=== PATIENT | female | born 1985 | race American Indian/Alaskan Native ===

== ENCOUNTER 2017-01-17 22:14 | Emergency (ER) | payer SELFPAY ==
[2017-01-17] MEDS ORDERED: XYLOCAINE 1% MPF 5 mL INFILTRATI ONE (22:58)
[2017-01-17] MEDS ORDERED: BOOSTRIX IM ONE (22:58)
[2017-01-17] MEDS ORDERED: NORCO 5/325 PO ONE (22:58)
[2017-01-17] MEDS ORDERED: NACL 0.9% IR ONE (23:00)
--- NOTE | 2017-01-17 23:00 | Emergency Department Report ---
ED Laceration HPI - HPI Chief Complaint: Wound/Laceration Stated Complaint: FALL/BUSTED MOUTH Time Seen by Provider: 01/17/17 22:51 Occurred When: Today Location: Head (lip, upper) Severity: severe (/10) Tetanus Status: Not up to Date Laceration Symptoms: Yes Pain (mid upper lip and mouth), No Foreign Body Sensation, No Numbness, No Weakness Other History: Patient here with her family reports that she was walking in her room tonight and slipped and hit her she reports that she has a cut on her upper lip and her mouth is painful at 9 at 10. Denies any loose or broken tooth. Tetanus vaccine is up-to-date. Denies any head injury or loss of consciousness. Denies any headache or dizziness. Pain is localized to mouth and upper lip at laceration site. No czmg-egj-ehdcpme medication taken. She reports she placed pressure on the area to reduce bleeding . ED Review of Systems ROS: Stated complaint: FALL/BUSTED MOUTH Other details as noted in HPI Comment: All other systems reviewed and negative Constitutional: no symptoms reported ENT: other (pain to upper lip and mouth from injury). denies: ear pain, throat pain, dental pain, epistaxis, congestion Respiratory: no symptoms reported Cardiovascular: denies: chest pain, palpitations, edema, syncope Gastrointestinal: denies: nausea, vomiting Skin: other (laceration to upper lip). denies: rash Neurological: denies: headache, weakness, numbness, paresthesias, abnormal gait , vertigo ED Past Medical Hx - Past Medical History Previous Medical History?: Yes Hx Asthma: Yes - Surgical History Past Surgical History?: No - Family History Family history: hypertension - Social History Smoking Status: Never Smoker Substance Use Type: None Other Social History: She lives with her family - Medications Home Medications: Home Medications Medication Instructions Recorded Confirmed Last Taken Type ALBUTEROL NEB's [Proventil 0.083%] 2.5 mg IH TID PRN 10/29/14 10/29/14 10/23/14 08:00 History Albuterol Sulfate [Ventolin HFA] 2 puff IH Q4H PRN 10/29/14 10/29/14 10/27/14 09 :00 History Ibuprofen [Motrin] 800 mg PO Q8H #30 tablet 10/29/14 Unknown Rx traMADol [Ultram 50 MG tab] 50 mg PO Q6HR PRN #20 tablet 10/29/14 Unknown Rx HYDROcodone/APAP 10-325 [[place] 1 each PO Q6HR PRN #20 tablet 12/29/14 Unknown Rx 10/325] Promethazine [Phenergan TAB] 25 mg PO Q6HR PRN #12 tab 12/29/14 Unknown Rx Ranitidine HCl [Zantac 150 MG TAB] 150 mg PO Q12H #60 tablet 12/29/14 Unknown Rx Acetaminophen/Codeine [Tylenol #3] 1 tab PO Q6H PRN #15 tab 05/31/15 Unknown Rx Albuterol *Only Ed* [Proventil 2.5 mg IH Q4H PRN #15 nebu 05/31/15 Unknown Rx 0.5% NEBS] Albuterol Sulfate [Ventolin HFA] 2 puff IH Q4H PRN #1 hfa.aer.ad 05/31/15 Unknown Rx Omeprazole [PriLOSEC] 20 mg PO QDAY #30 capsule.dr 05/31/15 Unknown Rx Cephalexin [Keflex] 500 mg PO Q8HR #15 cap 01/18/17 Unknown Rx Ibuprofen [Motrin] 600 mg PO Q8H PRN #15 tablet 01/18/17 Unknown Rx Laceration Physical Exam - Exam General: Vital signs noted. No distress. Alert and acting appropriately. General:This is a 31-year-old obese female that is in no acute distress. Head: Normocephalic atraumatic, no abrasion, contusion, laceration. Lungs: Clear to auscultate bilaterally no rhonchi wheezes or rales. Cardiovascular: S1, S2. Regular rate and rhythm and no murmur Mouth: Positive gum tenderness to upper incisor area, teeth are stable. Tongue is normal. No laceration noted. Uvula is midline and oral airways patent and mouth is moist. Patient able to open and close mouth without any difficulties Skin: Patient with 0.25 cm laceration to upper lip close to vermilion border right side with superficial skin scratch and left side with irregular laceration. Scant amount of bleeding noted. Wound is clean. No foreign body noted. Psych: Normal mood and behavior Extremity: No clubbing, cyanosis or edema. +2 pulses in all extremities. No neurovascular compromise Wound Length (cm): 0 (0.25 cm irregular laceration) Laceration Location: Other (mid upper lip close to vermilion border) Laceration Exam: Yes Normal Distal CMS, No Foreign Body, No Exposed Tendon, Vessel, or Nerve, No Tendon Injury ED Course Vital Signs 01/17/17 22:23 Temperature 98.8 F Pulse Rate 73 Respiratory 18 Rate Blood Pressure 125/88 O2 Sat by Pulse 99 Oximetry - Reevaluation(s) Reevaluation #1: 01/18/17 01:16 Patient given [place] 5/325 2 tablets for mouth pain and she was given Boostrix 0.5 mouth IM to update tetanus. - Laceration /Wound Repair Left Upper Medial Wound Location: mouth (upper lip) Wound Length (cm): 0 (0.25 cm) Wound's Depth, Shape: superficial, irregular Wound Explored: clean Irrigated w/ Saline (ccs): 250 Betadine Prep?: Yes Anesthesia: 1% Lidocaine Volume Anesthetic (ccs): 0 (0.5 mL) Wound Debrided: moderate Wound Repaired With: sutures Suture Size/Type: 6:0 (Vicryl) Number of Sutures: 2 Layer Closure?: No Sterile Dressing Applied?: Yes Progress: Laceration repair under sterile procedure with 6-0 Vicryl. 2 sutures placed. Patient tolerated procedure well and tetanus vaccine is updated. ED Medical Decision Making - Medical Decision Making ED course: Patient here reports that she accidentally slipped and hit her upper lip on her refrigerator in her room tonight. She reports mild pain without any injury to teeth and laceration to her upper lip. Physical findings for superficial laceration which is irregular close to vermilion border left side deeper than right side. See procedure note for laceration repair. Patient was given [place] 5/325 2 tablets for pain and booster 0.[address] Rene saw and evaluated patient. Vital signs are stable and she is afebrile. Pain is controlled. Assessment/plan 1. Laceration upper lip, superficial 2. Accidental ground-level fall 3. Mild pain due to trauma Patient discharged home with family with prescription for Keflex. I discussed with her that she does not have to have sutures removed as sutures are absorbable. I discussed the patient is to keep affected area clean and dry and to follow-up with her primary care physician in 4 days. He should discharged home with family prescription for Motrin and Keflex. Critical care attestation.: If time is entered above; I have spent that time in minutes in the direct care of this critically ill patient, excluding procedure time. ED Disposition Clinical Impression: Painful mouth Laceration of lip without complication Qualifiers: Encounter type: initial encounter Qualified Code(s): S01.511A - Laceration without foreign body of lip, initial encounter Accidental fall Qualifiers: Encounter type: initial encounter Qualified Code(s): W19.XXXA - Unspecified fall, initial encounter Disposition: TO HOME OR SELFCARE Is pt being admited?: No Does the pt Need Aspirin: No Condition: Stable Instructions: Laceration (ED), Absorbable Suture Care (ED) Additional Instructions: Please follow up with primary care physician in 4 days Please take antibiotic as prescribed Keep affected area clean and dry See discharge instruction on absorbable sutures Prescriptions: Cephalexin [Keflex] 500 mg PO Q8HR #15 cap Ibuprofen [Motrin] 600 mg PO Q8H PRN #15 tablet PRN Reason: Pain Referrals: PRIMARY CARE, [Primary Care Provider] - 01/21/17 Forms: Accompanied Note, Work/School Release Form(ED)
[2017-01-18 01:28] VITALS: BP 117/80
== END 2017-01-18 01:27 | disposition home or self-care (01) ==
LOC: ED 22:14
DX: S01.511A Laceration without foreign body of lip, initial encounter (principal); J45.909 Unspecified asthma, uncomplicated; W01.198A Fall on same level from slipping, tripping and stumbling with subsequent striking against other object, initial encounter; Y93.89 Activity, other specified; Y92.89 Other specified places as the place of occurrence of the external cause; Y99.8 Other external cause status
CPT/HCPCS: 90471; 90715; 99282

== ENCOUNTER 2017-02-12 12:41 | Emergency (ER) | payer SELFPAY ==
--- NOTE | 2017-02-12 13:04 | Emergency Department Report ---
Chief Complaint: Adult Asthma Stated Complaint: ASTHMA/SOB Time Seen by Provider: 02/12/17 13:01 - HPI History of Present Illness: PT c/o asthma exacerbation since this morning PT states she has been using her albuterol, but no relief - ROS Review of Systems: + cough + wheezing no recent uri + headache - Exam Physical Exam: - wheezing at this time MSE screening note: Focused history and physical exam performed. Due to findings the following was ordered: labs ED Disposition for MSE Condition: Stable
[2017-02-12 13:06] VITALS: BP 113/83
[2017-02-12 13:58] LABS: Bilirubin,Urine NEG (Negative); Blood,Urine NEG (Negative); Ketones,Urine NEG (Negative); Leukocyte Esterase,Urine TR (Negative); Nitrite,Urine NEG (Negative); Protein,Urine <15 mg/dL mg/dL (Negative); Urobilinogen,Urine < 2.0 mg/dL (<2.0)
[2017-02-12] MEDS: DUONEB *Not for PRN Use IH ONE ×2 (14:18→15:37)
[2017-02-12] MEDS: TYLENOL PO ONE (14:20)
[2017-02-12] MEDS: DELTASONE PO ONE (14:20)
--- NOTE | 2017-02-12 15:23 | XRay Report ---
Chest 2 views. History: Worsening cough. Findings: Dextrocardia is noted. Heart and pulmonary vessels are otherwise normal. The lungs are clear. There is no pleural fluid. Impression: Dextrocardia with situs inversus. No acute findings.
--- NOTE | 2017-02-12 16:14 | Emergency Department Report ---
ED Asthma HPI - General Chief Complaint: Adult Asthma Stated Complaint: ASTHMA/SOB Time Seen by Provider: 02/12/17 13:01 Source: patient Mode of arrival: Ambulatory Limitations: No Limitations - History of Present Illness Initial Comments: 31-year-old female past medical history asthma presents with complaint of shortness of breath since last night and wheezing since last night. Patient denies chest pain or significant shortness of breath. Patient states she was using her albuterol inhaler with minimal. Patient speaking in full sentences. States she has minor headache. Denies any fevers chills or productive cough. Dry cough reported by patient. MD Complaint: "asthma attack" -: Last night Asthma History: childhood onset Severity: moderate Associated Symptoms: dry cough Treatments Prior to Arrival: inhaled bronchodilator - Related Data Current Asthma Therapy: inhaled bronchodilator Home Medications Medication Instructions Recorded Confirmed Last Taken ALBUTEROL NEB's [Proventil 0.083%] 2.5 mg IH TID PRN 10/29/14 10/29/14 10/23/14 08:00 Albuterol Sulfate [Ventolin HFA] 2 puff IH Q4H PRN 10/29/14 10/29/14 10/27/14 09 :00 Previous Rx's Medication Instructions Recorded Last Taken Type Ibuprofen [Motrin] 800 mg PO Q8H #30 tablet 10/29/14 Unknown Rx traMADol [Ultram 50 MG tab] 50 mg PO Q6HR PRN #20 tablet 10/29/14 Unknown Rx HYDROcodone/APAP 10-325 [[place] 1 each PO Q6HR PRN #20 tablet 12/29/14 Unknown Rx 10/325] Promethazine [Phenergan TAB] 25 mg PO Q6HR PRN #12 tab 12/29/14 Unknown Rx Ranitidine HCl [Zantac 150 MG TAB] 150 mg PO Q12H #60 tablet 12/29/14 Unknown Rx Acetaminophen/Codeine [Tylenol #3] 1 tab PO Q6H PRN #15 tab 05/31/15 Unknown Rx Albuterol *Only Ed* [Proventil 2.5 mg IH Q4H PRN #15 nebu 05/31/15 Unknown Rx 0.5% NEBS] Albuterol Sulfate [Ventolin HFA] 2 puff IH Q4H PRN #1 hfa.aer.ad 05/31/15 Unknown Rx Omeprazole [PriLOSEC] 20 mg PO QDAY #30 capsule. 05/31/15 Unknown Rx Cephalexin [Keflex] 500 mg PO Q8HR #15 cap 01/18/17 Unknown Rx Ibuprofen [Motrin] 600 mg PO Q8H PRN #15 tablet 01/18/17 Unknown Rx ALBUTEROL Inhaler [ProAir HFA 1 puff IH Q4H PRN #1 inha 02/12/17 Unknown Rx Inhaler] Naproxen [Naprosyn TAB] 375 mg PO BID PRN #25 tablet 02/12/17 Unknown Rx Phenylephrine/Dm/Acetaminop/GG 10 ml PO Q4H PRN #1 bottle 02/12/17 Unknown Rx [Mucinex Rfxx-Xun-Oszyrorbnk Lq] Prednisone [predniSONE 10 mg 10 mg PO .TAPER #1 tab.ds.pk 02/12/17 Unknown Rx (6-Day Pack, 21 Tabs)] Allergies Allergy/AdvReac Type Severity Reaction Status Date / Time No Known Allergies Allergy Verified 05/31/15 11:29 ED Review of Systems ROS: Stated complaint: ASTHMA/SOB Other details as noted in HPI Constitutional: denies: chills, fever Eyes: denies: eye pain, eye discharge, vision change ENT: denies: ear pain, throat pain Respiratory: shortness of breath. denies: cough, wheezing Cardiovascular: denies: chest pain, palpitations Endocrine: no symptoms reported Gastrointestinal: denies: abdominal pain, nausea, diarrhea Genitourinary: denies: urgency, dysuria, discharge Musculoskeletal: denies: back pain, joint swelling, arthralgia Skin: denies: rash, lesions Neurological: denies: headache, weakness, paresthesias Psychiatric: denies: anxiety, depression Hematological/Lymphatic: denies: easy bleeding, easy bruising ED Past Medical Hx - Past Medical History Previous Medical History?: Yes Hx Asthma: Yes - Surgical History Past Surgical History?: No - Social History Smoking Status: Former Smoker Substance Use Type: Alcohol, Prescribed - Medications Home Medications: Home Medications Medication Instructions Recorded Confirmed Last Taken Type ALBUTEROL NEB's [Proventil 0.083%] 2.5 mg IH TID PRN 10/29/14 10/29/14 10/23/14 08:00 History Albuterol Sulfate [Ventolin HFA] 2 puff IH Q4H PRN 10/29/14 10/29/14 10/27/14 09 :00 History Ibuprofen [Motrin] 800 mg PO Q8H #30 tablet 10/29/14 Unknown Rx traMADol [Ultram 50 MG tab] 50 mg PO Q6HR PRN #20 tablet 10/29/14 Unknown Rx HYDROcodone/APAP 10-325 [[place] 1 each PO Q6HR PRN #20 tablet 12/29/14 Unknown Rx 10/325] Promethazine [Phenergan TAB] 25 mg PO Q6HR PRN #12 tab 12/29/14 Unknown Rx Ranitidine HCl [Zantac 150 MG TAB] 150 mg PO Q12H #60 tablet 12/29/14 Unknown Rx Acetaminophen/Codeine [Tylenol #3] 1 tab PO Q6H PRN #15 tab 05/31/15 Unknown Rx Albuterol *Only Ed* [Proventil 2.5 mg IH Q4H PRN #15 nebu 05/31/15 Unknown Rx 0.5% NEBS] Albuterol Sulfate [Ventolin HFA] 2 puff IH Q4H PRN #1 hfa.aer.ad 05/31/15 Unknown Rx Omeprazole [PriLOSEC] 20 mg PO QDAY #30 capsule.dr 05/31/15 Unknown Rx Cephalexin [Keflex] 500 mg PO Q8HR #15 cap 01/18/17 Unknown Rx Ibuprofen [Motrin] 600 mg PO Q8H PRN #15 tablet 01/18/17 Unknown Rx ALBUTEROL Inhaler [ProAir HFA 1 puff IH Q4H PRN #1 inha 02/12/17 Unknown Rx Inhaler] Naproxen [Naprosyn TAB] 375 mg PO BID PRN #25 tablet 02/12/17 Unknown Rx Phenylephrine/Dm/Acetaminop/GG 10 ml PO Q4H PRN #1 bottle 02/12/17 Unknown Rx [Mucinex Jquc-Nui-Poevmyqmqv Lq] Prednisone [predniSONE 10 mg 10 mg PO .TAPER #1 tab.ds.pk 02/12/17 Unknown Rx (6-Day Pack, 21 Tabs)] ED Physical Exam - General Limitations: No Limitations General appearance: alert, in no apparent distress - Head Head exam: Present: atraumatic, normocephalic - Eye Eye exam: Present: normal appearance, PERRL, EOMI - ENT ENT exam: Present: mucous membranes moist - Neck Neck exam: Present: normal inspection - Respiratory Respiratory exam: Present: wheezes (left lwoer lung field wheezing). Absent: respiratory distress - Cardiovascular Cardiovascular Exam: Present: regular rate, normal rhythm. Absent: systolic murmur, diastolic murmur, rubs, gallop - GI/Abdominal GI/Abdominal exam: Present: soft, normal bowel sounds - Extremities Exam Extremities exam: Present: normal inspection - Back Exam Back exam: Present: normal inspection - Neurological Exam Neurological exam: Present: alert, oriented X3 - Psychiatric Psychiatric exam: Present: normal affect, normal mood - Skin Skin exam: Present: warm, dry, intact, normal color. Absent: rash ED Course Vital Signs 02/12/17 02/12/17 02/12/17 13:03 14:20 14:29 Temperature 98.3 F Pulse Rate 75 Pulse Rate [ 80 75 Bilateral Upper Lobe] Respiratory 18 Rate Respiratory 18 18 Rate [Bilateral Upper Lobe] Blood Pressure 113/83 O2 Sat by Pulse 100 Oximetry 02/12/17 02/12/17 15:39 15:55 Temperature Pulse Rate Pulse Rate [ 80 82 Bilateral Upper Lobe] Respiratory Rate Respiratory 18 18 Rate [Bilateral Upper Lobe] Blood Pressure O2 Sat by Pulse Oximetry ED Medical Decision Making - Medical Decision Making A/P: Asthma exacerbation 1-refill on albuterol inhaler, prednisone pack, Mucinex 2-approximately when necessary 3-signs stable for discharge 4- x-ray shows sinus inversus but no signs of pneumonia at this time Critical care attestation.: If time is entered above; I have spent that time in minutes in the direct care of this critically ill patient, excluding procedure time. ED Disposition Clinical Impression: Asthma Qualifiers: Asthma severity: moderate persistent Asthma complication type: with acute exacerbation Qualified Code(s): J45.41 - Moderate persistent asthma with (acute ) exacerbation Disposition: TO HOME OR SELFCARE Is pt being admited?: No Does the pt Need Aspirin: No Condition: Stable Instructions: Asthma (ED), Reactive Airways Disease (ED) Prescriptions: ALBUTEROL Inhaler [ProAir HFA Inhaler] 1 puff IH Q4H PRN #1 inha PRN Reason: Wheezing Naproxen [Naprosyn TAB] 375 mg PO BID PRN #25 tablet PRN Reason: Cough Phenylephrine/Dm/Acetaminop/GG [Mucinex Qpvr-Bbo-Qvmzxxtecb Lq] 10 ml PO Q4H PRN #1 bottle PRN Reason: Cough Prednisone [predniSONE 10 mg (6-Day Pack, 21 Tabs)] 10 mg PO .TAPER #1 tab.ds.pk Referrals: [facility] [Outside] - 3-5 Days [facility] [Outside] - 3-5 Days Forms: Work/School Release Form(ED) Time of Disposition: 16:12
== END 2017-02-12 16:24 | disposition home or self-care (01) ==
LOC: ED 12:41
DX: J45.41 Moderate persistent asthma with (acute) exacerbation (principal); Z87.891 Personal history of nicotine dependence
CPT/HCPCS: 71020; 81001; 81025; 94640; 99284; J7512

== ENCOUNTER 2017-04-01 05:52 | Emergency (ER) | payer SELFPAY ==
[2017-04-01 06:06] VITALS: BP 116/78
--- NOTE | 2017-04-01 06:36 | XRay Report ---
FINAL REPORT EXAM: XR KNEE 1-2V LT HISTORY: knee pain COMPARISONS: None. FINDINGS: AP and lateral views of the left knee Mild patella [place]. No fracture, other malalignment or joint effusion identified. Joint spaces are preserved and subchondral surfaces are smooth. IMPRESSION: No acute finding. Mild patella [place], which can predispose the patient to patellofemoral maltracking. Correlation with symptoms is requested.
[2017-04-01] MEDS ORDERED: MOTRIN PO ONE (07:33)
--- NOTE | 2017-04-01 07:39 | Emergency Department Report ---
ED Lower Extremity HPI - General Chief Complaint: Extremity Injury, Lower Stated Complaint: LEFT LEG PAIN Time Seen by Provider: 04/01/17 07:24 Source: patient Mode of arrival: Ambulatory Limitations: No Limitations - History of Present Illness Initial Comments: This is a 31-year-old female nontoxic, well nourished in appearance, no acute signs of distress presents to the ED complaining of left knee pain status post fall that occurred yesterday around 5 PM. Patient stated she tripped and fell and landed on the left knee. Patient denies any numbness, tingling, fever, chills, nausea, vomiting, chest pain or shortness of breath. Denies any joint swelling or joint redness. Denies any other trauma or head trauma. Denies any allergies. Medical history includes asthma. Discussed pain as aching level of 8 out of 10. Patient has limited range of motion due to pain but is able to put minimal weight to the left knee. MD Complaint: knee injury -: days(s) (1) Injury: Knee: Left Type of Injury: blunt Place: street/outdoors Severity: mild Severity scale (0 -10): 8 Improves With: nothing Worsens With: nothing Context: fall Associated Symptoms: able to partially bear weight, ambulatory. denies: snap/ pop sensation, swelling, numbness, tingling, unable to bear weight - Related Data Home Medications Medication Instructions Recorded Confirmed Last Taken ALBUTEROL NEB's [Proventil 0.083%] 2.5 mg IH TID PRN 10/29/14 10/29/14 10/23/14 08:00 Albuterol Sulfate [Ventolin HFA] 2 puff IH Q4H PRN 10/29/14 10/29/14 10/27/14 09 :00 Previous Rx's Medication Instructions Recorded Last Taken Type Ibuprofen [Motrin] 800 mg PO Q8H #30 tablet 10/29/14 Unknown Rx traMADol [Ultram 50 MG tab] 50 mg PO Q6HR PRN #20 tablet 10/29/14 Unknown Rx HYDROcodone/APAP 10-325 [[place] 1 each PO Q6HR PRN #20 tablet 12/29/14 Unknown Rx 10/325] Promethazine [Phenergan TAB] 25 mg PO Q6HR PRN #12 tab 12/29/14 Unknown Rx Ranitidine HCl [Zantac 150 MG TAB] 150 mg PO Q12H #60 tablet 12/29/14 Unknown Rx Acetaminophen/Codeine [Tylenol #3] 1 tab PO Q6H PRN #15 tab 05/31/15 Unknown Rx Albuterol *Only Ed* [Proventil 2.5 mg IH Q4H PRN #15 nebu 05/31/15 Unknown Rx 0.5% NEBS] Albuterol Sulfate [Ventolin HFA] 2 puff IH Q4H PRN #1 hfa.aer.ad 05/31/15 Unknown Rx Omeprazole [PriLOSEC] 20 mg PO QDAY #30 capsule.dr 05/31/15 Unknown Rx Cephalexin [Keflex] 500 mg PO Q8HR #15 cap 01/18/17 Unknown Rx Ibuprofen [Motrin] 600 mg PO Q8H PRN #15 tablet 01/18/17 Unknown Rx ALBUTEROL Inhaler [ProAir HFA 1 puff IH Q4H PRN #1 inha 02/12/17 Unknown Rx Inhaler] Naproxen [Naprosyn TAB] 375 mg PO BID PRN #25 tablet 02/12/17 Unknown Rx Phenylephrine/Dm/Acetaminop/GG 10 ml PO Q4H PRN #1 bottle 02/12/17 Unknown Rx [Mucinex Euto-Ezu-Umbpnpcdop Lq] Prednisone [predniSONE 10 mg 10 mg PO .TAPER #1 tab.ds.pk 02/12/17 Unknown Rx (6-Day Pack, 21 Tabs)] Ibuprofen [Motrin 600 MG tab] 600 mg PO Q8H PRN #30 tablet 04/01/17 Unknown Rx Allergies Allergy/AdvReac Type Severity Reaction Status Date / Time No Known Allergies Allergy Verified 05/31/15 11:29 ED Review of Systems ROS: Stated complaint: LEFT LEG PAIN Other details as noted in HPI Constitutional: denies: chills, fever Eyes: denies: eye pain, eye discharge, vision change ENT: denies: ear pain, throat pain Respiratory: denies: cough, shortness of breath, wheezing Cardiovascular: denies: chest pain, palpitations Endocrine: no symptoms reported Gastrointestinal: denies: abdominal pain, nausea, diarrhea Genitourinary: denies: urgency, dysuria, discharge Musculoskeletal: denies: back pain, joint swelling, arthralgia Skin: denies: rash, lesions Neurological: denies: headache, weakness, paresthesias Psychiatric: denies: anxiety, depression Hematological/Lymphatic: denies: easy bleeding, easy bruising ED Past Medical Hx - Past Medical History Previous Medical History?: Yes Hx Asthma: Yes - Surgical History Past Surgical History?: No - Social History Smoking Status: Never Smoker Substance Use Type: Alcohol - Medications Home Medications: Home Medications Medication Instructions Recorded Confirmed Last Taken Type ALBUTEROL NEB's [Proventil 0.083%] 2.5 mg IH TID PRN 10/29/14 10/29/14 10/23/14 08:00 History Albuterol Sulfate [Ventolin HFA] 2 puff IH Q4H PRN 10/29/14 10/29/14 10/27/14 09 :00 History Ibuprofen [Motrin] 800 mg PO Q8H #30 tablet 10/29/14 Unknown Rx traMADol [Ultram 50 MG tab] 50 mg PO Q6HR PRN #20 tablet 10/29/14 Unknown Rx HYDROcodone/APAP 10-325 [[place] 1 each PO Q6HR PRN #20 tablet 12/29/14 Unknown Rx 10/325] Promethazine [Phenergan TAB] 25 mg PO Q6HR PRN #12 tab 12/29/14 Unknown Rx Ranitidine HCl [Zantac 150 MG TAB] 150 mg PO Q12H #60 tablet 12/29/14 Unknown Rx Acetaminophen/Codeine [Tylenol #3] 1 tab PO Q6H PRN #15 tab 05/31/15 Unknown Rx Albuterol *Only Ed* [Proventil 2.5 mg IH Q4H PRN #15 nebu 05/31/15 Unknown Rx 0.5% NEBS] Albuterol Sulfate [Ventolin HFA] 2 puff IH Q4H PRN #1 hfa.aer.ad 05/31/15 Unknown Rx Omeprazole [PriLOSEC] 20 mg PO QDAY #30 capsule. 05/31/15 Unknown Rx Cephalexin [Keflex] 500 mg PO Q8HR #15 cap 01/18/17 Unknown Rx Ibuprofen [Motrin] 600 mg PO Q8H PRN #15 tablet 01/18/17 Unknown Rx ALBUTEROL Inhaler [ProAir HFA 1 puff IH Q4H PRN #1 inha 02/12/17 Unknown Rx Inhaler] Naproxen [Naprosyn TAB] 375 mg PO BID PRN #25 tablet 02/12/17 Unknown Rx Phenylephrine/Dm/Acetaminop/GG 10 ml PO Q4H PRN #1 bottle 02/12/17 Unknown Rx [Mucinex Msex-Lhv-Dlmfypbfwv Lq] Prednisone [predniSONE 10 mg 10 mg PO .TAPER #1 tab.ds.pk 02/12/17 Unknown Rx (6-Day Pack, 21 Tabs)] Ibuprofen [Motrin 600 MG tab] 600 mg PO Q8H PRN #30 tablet 04/01/17 Unknown Rx ED Physical Exam - General Limitations: No Limitations General appearance: alert, in no apparent distress - Head Head exam: Present: atraumatic, normocephalic, normal inspection - Eye Eye exam: Present: normal appearance, PERRL, EOMI. Absent: scleral icterus, conjunctival injection, nystagmus, periorbital swelling, periorbital tenderness Pupils: Present: normal accommodation - ENT ENT exam: Present: normal exam, normal orophraynx, mucous membranes moist, TM's normal bilaterally, normal external ear exam - Neck Neck exam: Present: normal inspection, full ROM. Absent: tenderness, meningismus, lymphadenopathy, thyromegaly - Respiratory Respiratory exam: Present: normal lung sounds bilaterally. Absent: respiratory distress, wheezes, rales, rhonchi, stridor, chest wall tenderness, accessory muscle use, decreased breath sounds, prolonged expiratory - Cardiovascular Cardiovascular Exam: Present: regular rate, normal rhythm, normal heart sounds. Absent: bradycardia, tachycardia, irregular rhythm, systolic murmur, diastolic murmur, rubs, gallop - GI/Abdominal GI/Abdominal exam: Present: soft, normal bowel sounds. Absent: distended, tenderness, guarding, rigid, diminished bowel sounds - Extremities Exam Extremities exam: Present: normal inspection, full ROM, tenderness, normal capillary refill. Absent: pedal edema, joint swelling, calf tenderness - Expanded Lower Extremity Exam Left Hip exam: Present: normal inspection, full ROM Upper Leg exam: Present: normal inspection, full ROM Knee exam: Present: normal inspection, full ROM, tenderness, full knee extension. Absent: swelling, abrasion, laceration, ecchymosis, deformity, crepidus, dislocation, erythema, effusion, pain w/ pronation/supination, posterior draw sign, pain/laxity with valgus, pain/laxity with varus Lower Leg exam: Present: normal inspection, full ROM Ankle exam: Present: normal inspection, full ROM Foot/Toe exam: Present: normal inspection, full ROM Neuro vascular tendon exam: Present: no vascular compromise. Absent: pulse deficit, abnormal cap refill, motor deficit, sensory deficit, tendon deficit, extremity cold to touch, pallor, abnormal 2-point discrimination, decreased fine /light touch, foot drop, peroneal nerve deficit, significant pain with passive ROM of distal joint Gait: Positive: observed and limited by pain - Back Exam Back exam: Present: normal inspection, full ROM. Absent: tenderness, CVA tenderness (R), CVA tenderness (L), muscle spasm, paraspinal tenderness, vertebral tenderness, rash noted - Neurological Exam Neurological exam: Present: alert, oriented X3, CN II-XII intact, normal gait, reflexes normal - Psychiatric Psychiatric exam: Present: normal affect, normal mood - Skin Skin exam: Present: warm, dry, intact, normal color. Absent: rash ED Course Vital Signs 04/01/17 06:03 Temperature 97.8 F Pulse Rate 82 Respiratory 17 Rate Blood Pressure 116/78 O2 Sat by Pulse 99 Oximetry - Reevaluation(s) Reevaluation #1: 04/01/17 07:37 Patient is speaking in full sentences with no signs of distress noted. ED Lower Extremity MDM - Medical Decision Making 31-year-old female that presents with left knee pain. X-ray has been obtained and reviewed by radiologist with impression of no acute findings and mild patella dino. Patient was notified of x-ray results with no further question about patient. Patient is stable and was examined by me. Patient received a knee immobilizer with crutches. Patient was also instructed to Rice therapy. Patient received ibuprofen 800 mg by mouth in the ED with patient that his symptoms are improving and are subsiding. Patient was instructed to follow-up with a orthopedic doctor in 3-5 days or if symptoms worsen and continue return to emergency room as soon as possible possible. Patient is hemodynamically stable with stable vital signs. Patient states he is feeling better. At time time of discharge, the patient does not seem toxic or ill in appearance. No acute signs of distress noted. Patient agrees to discharge treatment plan of care. No further questions noted by the patient. Patient also received crutches and was educated but RN had a use crutches. Critical care attestation.: If time is entered above; I have spent that time in minutes in the direct care of this critically ill patient, excluding procedure time. ED Disposition Clinical Impression: Left knee pain Qualifiers: Chronicity: acute Qualified Code(s): M25.562 - Pain in left knee Disposition: TO HOME OR SELFCARE Is pt being admited?: No Does the pt Need Aspirin: No Condition: Stable Instructions: Knee Pain (ED), Knee Immobilizer (ED), Crutch Instructions (ED), Ibuprofen (By mouth) Additional Instructions: Follow-up with Dr. Jovel or another orthopedic doctor in 3-5 days or if symptoms worsen and continue return to emergency room as soon as possible possible. Rest, elevate, ice extremity. Prescriptions: Ibuprofen [Motrin 600 MG tab] 600 mg PO Q8H PRN #30 tablet PRN Reason: Pain Referrals: PRIMARY CARE, [Primary Care Provider] - 3-5 Days LEOBARDO JOVEL MD [Staff Physician] - 3-5 Days SYED SOLOMON MD [Staff Physician] - 3-5 Days [facility] [Outside] - 3-5 Days [facility] [Outside] - 3-5 Days Forms: Work/School Release Form(ED)
== END 2017-04-01 08:23 | disposition home or self-care (01) ==
LOC: ED 05:52
DX: M25.562 Pain in left knee (principal); J45.909 Unspecified asthma, uncomplicated

== ENCOUNTER 2017-11-24 04:43 | Emergency (ER) | payer MEDICAID ==
[2017-11-24] MEDS ORDERED: MOTRIN ONE (05:54)
[2017-11-24 06:06] VITALS: BP 134/81
[2017-11-24] MEDS ORDERED: MOTRIN PO ONE (06:06)
[2017-11-24] MEDS ORDERED: MORPHINE ONE (06:24)
[2017-11-24] MEDS ORDERED: MORPHINE IM ONE (06:33)
--- NOTE | 2017-11-24 07:06 | Emergency Department Report ---
Chief Complaint: Shoulder Injury Stated Complaint: LT SHOULDER PAIN - HPI History of Present Illness: A 11-year-old -Wel[place] female comes in complaining of left shoulder pain since Saturday. Patient denies any injury. She was seen at [facility] and treated with Tylenol 3 and Flexeril which reports are not working. Patient reports that she had a x-ray and CT. - Exam Vital Signs: Vital Signs 11/24/17 11/24/17 06:00 06:34 Temperature 98.6 F Pulse Rate 83 Respiratory 16 18 Rate Blood Pressure 134/81 O2 Sat by Pulse 100 Oximetry Physical Exam: Patient's alert and oriented and appears in a lot of pain. Patient has tenderness to the left shoulder and left upper shoulder blade. MSE screening note: Focused history and physical exam performed. Due to findings the following was ordered: Patient's been evaluated by this provider. Based on history and physical I have ordered CBC CMP and lipase as well as an x-ray of her shoulder. Patient was given morphine 4 mg IM. Differential diagnoses left shoulder pain sprain, gallbladder. ED Disposition for [facility] [place] Condition: Stable Referrals: PRIMARY CARE, [Primary Care Provider] - 3-5 Days
[2017-11-24 07:16] LABS: HCG Qualitative,Urine Negative (Negative)
[2017-11-24 07:26] LABS: Bacteria,Urine 3+ /HPF (Negative); Bilirubin,Urine NEG (Negative); Blood,Urine NEG (Negative); Color,Urine Yellow (Yellow); Hyaline Casts,Urine 1 /LPF; Mucus,Urine FEW /HPF; Protein,Urine <15 mg/dL mg/dL (Negative); Urobilinogen,Urine < 2.0 mg/dL (<2.0)
--- NOTE | 2017-11-24 07:41 | XRay Report ---
FINAL REPORT PROCEDURE: XR SHOULDER 2+V LT TECHNIQUE: LEFT shoulder radiographs including AP views in internal and external rotation. CPT 79911 HISTORY: Left shoulder pain COMPARISON: No prior studies are available for comparison. FINDINGS: Fracture (s) and/or Dislocation(s): None . Joint space(s): Normal . Soft tissues: Normal . Bone mineralization: Normal . Foreign bodies: None . IMPRESSION: Normal Examination
[2017-11-24 08:10] LABS: Basophils # (Auto) 0.1 K/mm3 (0.0-0.1); Basophils % (Auto) 0.9 % (0.0-1.8); Eosinophils % (Auto) 0.7 % (0.0-4.3); Hematocrit 40.3 % (30.3-42.9); Hemoglobin 12.6 gm/dl (10.1-14.3); Lymphocytes # (Auto) 1.8 K/mm3 (1.2-5.4); Lymphocytes % (Auto) 29.3 % (13.4-35.0); Mean Corpuscular HGB Conc 31 % (30-34); Mean Corpuscular Volume 83 fl (79-97); Monocytes # (Auto) 0.6 K/mm3 (0.0-0.8); Monocytes % (Auto) 10.3 % (0.0-7.3); Platelet Count 303 K/mm3 (140-440); Red Blood Count 4.87 M/mm3 (3.65-5.03); Red Cell Distribution Width 14.5 % (13.2-15.2)
[2017-11-24 08:23] LABS: Alanine Aminotransferase 11 units/L (7-56); BUN/Creatinine Ratio 24; Blood Urea Nitrogen 12 mg/dL (7-17); Calcium 8.9 mg/dL (8.4-10.2); Hemolysis Index 37; Lipase 13 units/L (13-60)
[2017-11-24 08:31] LABS: Mean Corpuscular Hemoglobin 26 pg (28-32)
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
== END 2017-11-24 10:10 | disposition home or self-care (01) ==
LOC: ED 04:43
DX: M75.42 Impingement syndrome of left shoulder (principal); J44.9 Chronic obstructive pulmonary disease, unspecified; R10.9 Unspecified abdominal pain
CPT/HCPCS: 36415; 73030; 80053; 81001; 81025; 83690; 85025; 87086; 96372; 99284; J2270

== ENCOUNTER 2019-02-25 08:01 | Emergency (ER) | payer SELFPAY ==
[2019-02-25] MEDS ORDERED: PROVENTIL IH ONE (08:15)
--- NOTE | 2019-02-25 08:15 | Emergency Department Report ---
HPI - General Chief Complaint: Sore Throat Time Seen by Provider: 02/25/19 08:10 - HPI HPI: Is a 33-year-old who comes via EMS to the emergency room with near syncope this AM associated with wheezing while at work. She called 911 for asthma attack. Her blood sugar per EMS was 105 patient states she was working last night when the symptoms started. On exam patient appears anxious. She is hyperventilating. She states that she has a history of asthma but is not taking any medications currently. She also has a history of panic disorder. Patient denies alcohol or drugs or cigarette use. Patient has taken nothing to feel better. Last menstrual cycle was 02/25/2019. She denies fevers, chest pain, sob, chills,dysuria, vaginal discharge, abdominal pain, nausea or diarrhea. ED Past Medical Hx - Past Medical History Previous Medical History?: Yes Hx Psychiatric Treatment: Yes (Panic Attack) Hx Asthma: Yes Hx COPD: Yes - Surgical History Past Surgical History?: No - Family History Family history: no significant - Social History Smoking Status: Never Smoker Substance Use Type: None - Medications Home Medications: Home Medications Medication Instructions Recorded Confirmed Last Taken Type ALBUTEROL NEB's [Proventil 0.083%] 2.5 mg IH TID PRN 10/29/14 10/29/14 10/23/14 08:00 History Albuterol Sulfate [Ventolin HFA] 2 puff IH Q4H PRN 10/29/14 10/29/14 10/27/14 09:00 History Albuterol Sulfate [Proair 90 mcg IH QID PRN #1 [email or web address] 02/25/19 Unknown Rx Respiclick] Cetirizine HCl [ZyrTEC] 10 mg PO DAILY #30 capsule 02/25/19 Unknown Rx Fluticasone [Flonase] 1 spray NS QDAY #1 bottle 02/25/19 Unknown Rx Potassium Chloride 20 meq PO BID #2 dose 02/25/19 Unknown Rx hydrOXYzine PAMOATE [Vistaril] 25 mg PO Q8H PRN #10 capsule 02/25/19 Unknown Rx methylPREDNISolone [Medrol 4MG 4 mg PO FS #1 tab.ds.pk 02/25/19 Unknown Rx DOSEPAK (21 tabs)] ED Review of Systems ROS: Stated complaint: SORE THROAT/WEAKNESS Other details as noted in HPI Comment: All other systems reviewed and negative Physical Exam - Physical Exam Vital Signs: Vital Signs 02/25/19 08:02 Temperature 98.9 F Pulse Rate 72 Respiratory 18 Rate Blood Pressure 110/73 O2 Sat by Pulse 97 Oximetry Physical Exam: s1s2 lungs with b wheezing, oli upper lobes bilateral abd snt no edema no jvd no cva tenderness alert oriented no focal deficit anxious ED Course Vital Signs 02/25/19 08:02 Temperature 98.9 F Pulse Rate 72 Respiratory 18 Rate Blood Pressure 110/73 O2 Sat by Pulse 97 Oximetry - Reevaluation(s) Reevaluation #1: 02/25/19 10:26 MUCH IMPROVED TALKING ON PHONE NO COMPLAINTS ED Medical Decision Making - Lab Data Result diagrams: 02/25/19 08:19 02/25/19 08:19 - Medical Decision Making Labs 02/25/19 02/25/19 02/25/19 08:19 08:19 08:38 WBC 4.7 RBC 4.55 Hgb 12.2 Hct 37.5 MCV 82 MCH 27 L MCHC 33 RDW 14.8 Plt Count 331 Sodium 136 L Potassium 3.3 L Chloride 99.0 Carbon Dioxide 25 Anion Gap 15 BUN 10 Creatinine 0.7 Estimated GFR > 60 BUN/Creatinine Ratio 14 Glucose 96 Calcium 9.3 Total Bilirubin 0.40 AST 15 ALT 8 Alkaline Phosphatase 45 Total Protein 7.8 Albumin 4.4 Albumin/Globulin Ratio 1.3 Urine Color Yellow Urine Turbidity Clear Urine pH 8.0 H Ur Specific [place] 1.011 Urine Protein <15 mg/dl Urine Glucose (UA) Neg Urine Ketones Neg Urine Blood Neg Urine Nitrite Neg Urine Bilirubin Neg Urine Urobilinogen < 2.0 Ur Leukocyte Esterase Neg Urine WBC (Auto) < 1.0 Urine RBC (Auto) 1.0 U Epithel Cells (Auto) 2.0 Urine Mucus Few Urine HCG, Qual Negative Urine Opiates Screen Urine Methadone Screen Ur Barbiturates Screen Ur Phencyclidine Scrn Ur Amphetamines Screen U Benzodiazepines Scrn Urine Cocaine Screen U Marijuana (THC) Screen 02/25/19 08:38 WBC RBC Hgb Hct MCV MCH MCHC RDW Plt Count Sodium Potassium Chloride Carbon Dioxide Anion Gap BUN Creatinine Estimated GFR BUN/Creatinine Ratio Glucose Calcium Total Bilirubin AST ALT Alkaline Phosphatase Total Protein Albumin Albumin/Globulin Ratio Urine Color Urine Turbidity Urine pH Ur Specific [place] Urine Protein Urine Glucose (UA) Urine Ketones Urine Blood Urine Nitrite Urine Bilirubin Urine Urobilinogen Ur Leukocyte Esterase Urine WBC (Auto) Urine RBC (Auto) U Epithel Cells (Auto) Urine Mucus Urine HCG, Qual Urine Opiates Screen Presumptive negative Urine Methadone Screen Presumptive negative Ur Barbiturates Screen Presumptive negative Ur Phencyclidine Scrn Presumptive negative Ur Amphetamines Screen Presumptive negative U Benzodiazepines Scrn Presumptive negative Urine Cocaine Screen Presumptive negative U Marijuana (THC) Screen Presumptive negative labs noted K noted- replaced with PO; per pt she threw it up--so redosed 0950 I've called pts mother- she reports that the pt always hyperventilates when she has anxiety attacks. Pt breathing into bag generally helps. Pt reassured vistaril/zofran PO - Differential Diagnosis asthma ae/anxiety/anemia Critical care attestation.: If time is entered above; I have spent that time in minutes in the direct care of this critically ill patient, excluding procedure time. ED Disposition Clinical Impression: Hypokalemia, Asthma, acute, Anxiety Disposition: [id number] TO HOME OR SELFCARE Is pt being admited?: No Does the pt Need Aspirin: No Condition: Stable Instructions: Asthma (ED), Hypokalemia (ED), Anxiety (ED) Additional Instructions: FOLLOW UP WITH PCP REFERRAL BELOW FOR YOUR ASTHMA AND ANXIETY AVOID STIMULANTS/CAFFEINE EXERCISE DAILY DRINK A LOT OF WATER MEDS ORDERED TODAY Referrals: PRIMARY CARE, [Primary Care Provider] - 3-5 Days MICHAEL ANDREW MD [Staff Physician] - 3-5 Days Forms: Work/School Release Form(ED) Time of Disposition: 09:43
[2019-02-25] MEDS ORDERED: DELTASONE PO ONE (08:16)
[2019-02-25 08:40] LABS: Hematocrit 37.5 % (30.3-42.9); Hemoglobin 12.2 gm/dl (10.1-14.3); Mean Corpuscular HGB Conc 33 % (30-34); Mean Corpuscular Volume 82 fl (79-97); Platelet Count 331 K/mm3 (140-440); Red Blood Count 4.55 M/mm3 (3.65-5.03); Red Cell Distribution Width 14.8 % (13.2-15.2)
[2019-02-25 08:57] LABS: Alanine Aminotransferase 8 units/L (7-56); Albumin 4.4 g/dL (3.9-5); BUN/Creatinine Ratio 14; Blood Urea Nitrogen 10 mg/dL (7-17); Calcium 9.3 mg/dL (8.4-10.2); Hemolysis Index 2
[2019-02-25] MEDS ORDERED: K-DUR PO ONE ×2 (09:02→09:49)
[2019-02-25 09:17] LABS: Bilirubin,Urine NEG (Negative); Blood,Urine NEG (Negative); Color,Urine Yellow (Yellow); Mucus,Urine FEW /HPF; Protein,Urine <15 mg/dL mg/dL (Negative); Urobilinogen,Urine < 2.0 mg/dL (<2.0); WBC,Urine < 1.0 /HPF (0.0-6.0)
[2019-02-25 09:28] LABS: Amphetamine Screen,Urine PRESUMPTIVE NEGATIVE; Benzodiazepines Screen,Urine PRESUMPTIVE NEGATIVE; Cannabinoid Screen,Urine PRESUMPTIVE NEGATIVE; Cocaine Screen,Urine PRESUMPTIVE NEGATIVE; Methadone Screen,Urine PRESUMPTIVE NEGATIVE; Opiate Screen,Urine PRESUMPTIVE NEGATIVE
[2019-02-25 09:34] LABS: HCG Qualitative,Urine Negative (Negative)
[2019-02-25] MEDS ORDERED: VISTARIL PO ONE (09:49)
[2019-02-25] MEDS ORDERED: ZOFRAN ODT PO ONE (09:49)
[2019-02-25 10:39] VITALS: BP 118/74
== END 2019-02-25 10:38 | disposition home or self-care (01) ==
LOC: ED 08:01
DX: J45.909 Unspecified asthma, uncomplicated (principal); F41.9 Anxiety disorder, unspecified; E87.6 Hypokalemia
CPT/HCPCS: 36415; 80053; 80307; 81001; 81025; 85027; 99284; J7512; Q0162; Q0177